=== PATIENT | female | born 1965 | race Caucasian/White ===

== ENCOUNTER 2024-08-05 20:14 | Emergency (ER) | payer OTHER, SELFPAY ==
--- NOTE | ~2024-08-05 | XR_ITS ---
EXAMINATION: XR CHEST 2 VIEWS CLINICAL INFORMATION: Chest pain. COMPARISON: None. TECHNIQUE: Frontal and lateral views of the chest were obtained. FINDINGS: The heart, great vessels, pulmonary vasculature and mediastinum are normal. The lungs show no focal infiltrate, effusion or pneumothorax. There is no acute osseous abnormality. XR/XR chest 2V IMPRESSION: No active cardiopulmonary disease. Electronically signed by: Raymond Alvarez MD 08/05/2024 09:36 PM EST
[2024-08-05 20:19] VITALS: BP 186/88; PULSE 55; RESP 16; TEMP 36.7; O2SAT 99; BMI 32.6
--- NOTE | 2024-08-05 20:19 | ECG_ITS ---
Test Reason : CP Blood Pressure : / mmHG Vent. Rate : 059 BPM Atrial Rate : 059 BPM P-R Int : 174 ms QRS Dur : 102 ms QT Int : 412 ms P-R-T Axes : 028 -37 016 degrees QTc Int : 407 ms Sinus bradycardia Left axis deviation Minimal voltage criteria for LVH, may be normal variant ( Benny product ) Cannot rule out Anterior infarct , age undetermined Abnormal ECG No previous ECGs available Referred By: Mini Bass Electronically Signed By:CATHY FUNEZ MD
--- NOTE | 2024-08-05 20:20 | ED.CHESTPAIN ---
HPI - Chest Pain General Chief Complaint: Chest Pain Stated Complaint: Chest pain Time Seen by Provider: 08/05/24 23:32 Source: patient Mode of arrival: ambulatory History of Present Illness ED Provider: June White PA-C HPI narrative: 59-year-old female seen in the ED for concerns regarding chest pain and associated changes in heart rate. Patient reports that baseline heart rate is low but has recently been getting alerts on their apple watch that their heart rate is in the mid 30s. For approximately 2 weeks patient has been experiencing spikes in heart rate into the 140s and yesterday 160s; notes associated nausea, sweating, and fluttering sensation in chest. Currently reporting 3/10 centralized chest pain that is described as pressure; has been present for approximately 1 day. Has not noticed anything that makes it better or worse. Denies any new medications, any recent illness, any recent travel. Denies notable trigger for events. Denies radiation of pain to arm, jaw, back. Does not currently have any diagnosed cardiac or pulmonary concerns and is not currently have a backup administrative coordinator. Onset (ago): day(s) (1) Timing of current episode: constant (Constant, although patient reports symptoms have gotten better since being in the emergency department) Onset: during rest (Has reportedly had been in different environments; including while driving and at home.) Pain location: substernal (Reports that it is centralized and radiates to the left side of the chest) and left chest Pain scale (0-10): 3 Quality: other (Pressure) Relieving factors: nothing Exacerbating factors: nothing Associated symptoms: nausea and diaphoresis Treatment prior to arrival: none Related Data Allergies Allergy/AdvReac Type Severity Reaction Status Date / Time Iodinated Contrast Media Allergy Severe Difficulty Verified 08/05/24 20:23 [IV Contrast Dye] Breathing erythromycin base Allergy Intermediate Vomiting Verified 08/05/24 20:23 Review of Systems Review of Systems: Neuro: Alert and oriented. Denies numbness and tingling of extremities. Constitutional: Denies fever, chills, weakness. HEENT: Denies head pain, headache. Denies visual disturbances, erythema, discharge of the eyes. Denies auditory changes, discharge with the ears. Denies nasal discharge, nasal congestion. Denies difficulty swallowing, sore throat. Cardiac: Reports 3/10 centralized chest pressure. Reports fluttering sensation in chest associated with high heart rate. Pulmonary: Denies shortness of breath, cough, wheezing, sputum production Abdominal: Reports nausea during event. Denies vomiting, abdominal pain, diarrhea, constipation MSK: Reports full range of motion in all extremities. Integumentary: Denies skin changes including rashes, erythema, pruritus Yes all other systems are reviewed and are negative Constitutional: Constitutional: Reports as per HPI and Reports no additional constitutional complaints Eyes: Eyes: Reports as per HPI and Reports no additional eye complaints ENT: Reports system reviewed and no additional complaints, except as documented and Reports as per HPI Cardiovascular: Cardiovascular: Reports as per HPI Respiratory: Respiratory: Reports as per HPI and Reports no additional respiratory complaints Gastrointestinal: Gastrointestinal: Reports as per HPI and Reports no additional gastrointestinal complaints Comments: Nausea associated with an increase in heart rate Musculoskeletal: Musculoskeletal: Reports no additional musculoskeletal complaints and Reports as per HPI Integumentary/Breasts: Skin/Breast: Reports system reviewed and no additional complaints, except as docu and Reports as per HPI Neurologic: Reports system reviewed and no additional complaints, except as documented and Reports as per HPI Psychiatric: Comments: No known history of anxiety or depression; no notable triggers prior to events Endocrine: Endocrine: Reports no additional endocrine complaints and Reports as per HPI Hematologic/Lymphatic: Hematologic/Lymphatic: Reports no additional hematologic/lymphatic complaints and Reports as per HPI Allergic/Immunologic: Allergic/Immunologic: Reports no additional allergic/immunologic complaints and Reports as per HPI [facility] Social History Social History (System 07/20/23 @ 15:26 by Vianney Haque) Smoked in Last 30 Days: No Use of substances other than those prescribed or required for medical reasons: No Advance Directives: No Physical Exam Vital Signs: Vital Signs: Last Vital Signs Temp 98.0 F 08/05/24 23:52 Pulse 56 08/05/24 23:52 Resp 12 08/05/24 23:52 BP 156/74 H 08/05/24 23:52 Pulse Ox 98 08/05/24 23:52 O2 Del Method Room Air 08/05/24 23:52 BMI result Body Mass Index 32.6 Const: Other: Patient is calm and cooperative, well-appearing. Seen lying in bed speaking in complete sentences. General: cooperative, healthy appearing, comfortable, no acute distress, alert and awake Nutritional Appearance: average body habitus and well nourished Orientation/consciousness: patient oriented x3 HEENT: Other: Head is normocephalic, atraumatic. No notable changes to hearing. No abnormalities to external ears. Nose is normal appearing no signs of trauma or abnormalities Face is symmetric with no signs of trauma or abnormalities Head: Yes normal to inspection, Yes normocephalic and Yes atraumatic Ears: hearing grossly normal bilaterally and external ears normal General nose exam: Normal external nose present and Normal nares present Face and sinus: Yes normal facial exam and Yes face symmetric Eyes: Other: Pupils are PERRL. EOM intact. General: appearance normal, both eyes and all related structures Eyelids: Yes eyelids normal Conjunctivae: conjunctivae normal Sclerae: sclerae normal Pupils: Equal, round and reactive pupils present EOM: EOMs intact bilaterally Neck: Neck: Yes normal visual inspection and Yes full ROM Resp: Other: No signs of respiratory distress. Lung sounds clear to auscultation bilaterally; no notable wheezing, rhonchi. Patient is able to speak in complete in full sentences Effort & Inspection: normal respiratory effort Auscultation: clear to auscultation bilaterally Cardio: Rate: regular rate Rhythm: regular rhythm GI: Other: abdomen is soft, non-tender, non-distended Inspection: Yes normal to inspection Skin: Other: Skin is warm, dry, appropriate her color. No notable rashes, erythema, edema General skin exam: no rashes or lesions noted Neuro: General: patient oriented x3 and moves all extremities Cranial nerves: Yes Equal, round and reactive pupils present Extrem: Other: Patient is able to move all extremities freely; no noted edema. General: Yes normal to inspection and Yes full ROM Psych: Other: Patient is alert and oriented; does not appear to be in a state of distress Course Course Course Narrative: This is a Rapid Medical Examination (RME) performed by Luis Alberto Bass PA-C in triage. Full HPI, ROS, assessment and treatment plan per primary provider in the Main ED. 59 yo female with no significant medical history presents to the ER for evaluation of 4/10 squeezing chest pain in the middle of her chest that radiates to the left side of the chest and to her back. Pain started yesterday after she had a 10 minute episode of tachycardia to the 160s. HR was picked up on her watch and phone. also had a similar episode 2 weeks ago but was shorter in duration. Recently had a Holter monitor for bradycardia, does not know the results yet. has not seen a backup administrative coordinator yet. HR 50s in triage which she reports is her baseline. BP 186/88 in triage. no history of HTN. no headache or vision changes. Plan: EKG, labs, CXR Medical Decision Making Medical Decision Making MDM Narrative: Abelardo White PA-C have personally assessed and manage the patient,Chinyere KIM observed in helped to formulate the documentation. 59-year-old female seen in the ED for concerns regarding chest pain and associated changes in heart rate. Patient reports that baseline heart rate is low but has recently been getting alerts on their apple watch that their heart rate is in the mid 30s. For approximately 2 weeks patient has been experiencing spikes in heart rate into the 140s and yesterday 160s; notes associated nausea, sweating, and fluttering sensation in chest. Currently reporting 3/10 centralized chest pain that is described as pressure; has been present for approximately 1 day. Has not noticed anything that makes it better or worse. Denies any new medications, any recent illness, any recent travel. Denies notable trigger for events. Denies radiation of pain to arm, jaw, back. Does not currently have any diagnosed cardiac or pulmonary concerns and is not currently have a backup administrative coordinator. DDX - anxiety; consider given increase in heart rate, nausea, and chest pain. May be difficult to diagnose due to no apparent trigger prior to events - stable angina; consider given chest pain, nausea, changes in heart rate. Unlikely as patient denies chest pain being triggered upon exertion - arrhythmia; consider given fluctuation and heart rate with episodes of bradycardia and episodes of tachycardia with no apparent trigger. Unlikely as EKG showed no signs of arrhythmia - pulmonary embolism; consider given tachycardia and associated chest pain. Unlikely as symptoms of tachycardia have been ongoing for approximately 2 weeks - myocardial infarction; consider given chest pain, nausea, changes in heart rate. Unlikely as EKG did not show changes that was support diagnosis; we will need to assess troponin levels Plan: - EKG: Assess for any underlying arrhythmia, myocardial infarction, other cardiac, pulmonary, or electrolyte abnormalities - CBC: Assess for any underlying hematologic or infectious process - CMP: Assess for any metabolic or electrolyte abnormalities - UA: This is rounding signs of infectious pathology - troponin: Assess for elevation which may be indicative of underlying cardiac pathology - chest x-ray: Assess for any cardiac, pulmonary abnormalities - COVID/Flu/RSV swab: To assess for the presence of COVID, flu, RSV per June White PA-C Patient has been having ongoing palpitations that are transient over the past 2 weeks. She had a Holter monitor trial, she is currently pending results. Patient was wearing an Apple watch, when she noted her heart rate to be elevated. I do not think this is ACS, given duration of symptoms, beyond age, the patient has no risk factors for coronary artery disease, screening labs including a cardiac enzymes were obtained. Thought about PE, however there was not a pleuritic nature to her pain, the tachycardia is transient, she is not hypoxic, she also has no objective signs symptoms for DVT on exam, I am not adding a dimer. Thought about thyroid toxicosis, a TSH were screened, it is within the normal limit. I have independently reviewed the following tests: Labs: No leukocytosis, not anemic, no electrolyte abnormality, thyroid within normal limit, troponin negative EKG: Sinus bradycardia, rate of 59, no ischemic changes no ectopy, QTC 407 Chest x-ray: XR/XR chest 2V IMPRESSION: No active cardiopulmonary disease. Electronically signed by: Raymond Alvarez MD 08/05/2024 09:36 PM [facility] [place] Lab Data 08/05/24 20:42 08/05/24 20:42 Labs: Lab Results 08/05/24 08/05/24 08/05/24 Range/Units 20:41 20:42 23:56 WBC 8.5 (4.8-10.8) X10*3/uL RBC 4.40 (4.20-5.50) X10*6/uL Hgb 13.6 (12.0-16.0) g/dl Hct 39.2 (37.0-47.0) % MCV 89.1 (80.0-98.0) fL MCH 30.9 (27.0-33.0) pg MCHC 34.7 (31.0-35.0) g/dl RDW 12.5 (11.0-16.0) % Plt Count 304 (160-400) X10*3/uL MPV 9.7 (9.4-12.3) fL Immature Gran % (Auto) 0.1 (0.0-0.4) % Neut % (Auto) 46.2 (45-73) % Lymph % (Auto) 43.5 H (20-40) % Mcintosh % (Auto) 8.2 (2-11) % Eos % (Auto) 1.4 (0-4) % Baso % (Auto) 0.6 (0-2) % Lymph # (Auto) 3.7 (1.2-4.9) X10*3/uL [place]osh # (Auto) 0.7 (0.1-1.2) X10*3/uL Eos # (Auto) 0.1 (0.0-0.4) X10*3/uL Baso # (Auto) 0.1 (0.0-0.2) X10*3/uL Abs Immat Gran (auto) 0.01 (0.00-0.03) X10*3/uL Absolute Neuts (auto) 3.9 (2.0-8.3) x10*3/uL Absolute Nucleated RBC 0.000 (0.0-0.012) X10*3/uL Nucleated RBC % (auto) 0.0 (0.0-0.2) /100WBC PT 10.7 L (10.9-12.4) SEC INR 0.9 (0.9-1.1) APTT 32.4 (26.0-36.8) SEC Sodium 140 (135-145) mmol/L Potassium 4.0 (3.3-5.1) mmol/L Chloride 108 (96-108) mmol/L Carbon Dioxide 23 (22-29) mmol/L Anion Gap 13 (12-20) BUN 17 H (9-16) mg/dL Creatinine 0.82 (0.5-1.4) mg/dL Estim Creat Clear Calc 78.5 Estimated GFR > 60 Random Glucose 103 (60-115) mg/dL Calcium 9.9 (8.4-10.2) mg/dL Magnesium 2.1 (1.6-2.6) mg/dL Total Bilirubin 0.4 (0.0-1.0) mg/dL Direct Bilirubin 0.1 (0.0-0.5) mg/dL AST 47 H (5-31) U/L ALT 75 H (0-31) U/L Alkaline Phosphatase 109 (39-117) U/L Troponin I High Sens < 2.7 (<3.5-17.0) ng/L Total Protein 7.4 (6.5-8.0) g/dL Albumin 4.5 (3.5-5.0) g/dL TSH 2.40 (0.32-4.0) uIU/mL Urine Color Yellow Urine Appearance Clear Urine pH 6.5 (5.0-9.0) Ur Specific [place] <= 1.005 (1.005-1.025) Urine Protein Negative (Neg-Trace) mg/dL Urine Glucose (UA) Negative (Negative) mg/dL Urine Ketones Negative (Negative) mg/dL Urine Blood Negative (Negative) Urine Nitrite Negative (Negative) Ur Leukocyte Esterase Moderate (2+) H (Negative) Urine RBC 0-2 (0-2) /HPF Urine WBC 11-20 H (0-5) /HPF Ur Squamous Epith Cells 3-5 (0-2) /HPF Urine Bacteria None Seen (None Seen) Hyaline Casts 0-2 (0-2) /LPF Influenza Type A (PCR) NEGATIVE (Negative) Influenza Type B (PCR) NEGATIVE (Negative) RSV RNA Qual (PCR) NEGATIVE (Negative) SARS-CoV-2 RNA (RT-PCR) NEGATIVE (Negative) Discharge Plan Discharge Clinical Impression: Palpitations, Chest pain Patient Disposition: Home, Self-Care Instructions: Heart Palpitations (ED), Valsalva Maneuver (ED), Noncardiac Chest Pain (ED) Additional Instructions: All of your screening labs including a cardiac enzyme and your thyroid function were screened and were normal. There were no concerning changes on your EKG. See home care instructions. I have given you instructions on how to perform the Valsalva maneuver in the event the you develop a rapid rate again. Keep your pending follow up with your primary care provider for the Holter monitor trial results. Return precautions for a prolonged period of rapid heart rate, the development of lightheaded , or the sense your going to pass out. Print Language: Ukrainian
[2024-08-05 20:47] LABS: MANUAL DIFF FLAG NO
[2024-08-05 20:50] LABS: Basophils Absolute Auto 0.1 X10*3/uL (0.0-0.2); Basophils Percent Auto 0.6 % (0-2); Eosinophils Absolute Auto 0.1 X10*3/uL (0.0-0.4); Eosinophils Percent Auto 1.4 % (0-4); Hematocrit 39.2 % (37.0-47.0); Hemoglobin 13.6 g/dl (12.0-16.0); Imm Gran Abs Auto 0.01 X10*3/uL (0.00-0.03); Imm Gran Pct Auto 0.1 % (0.0-0.4); Lymphocytes Absolute Auto 3.7 X10*3/uL (1.2-4.9); Lymphocytes Percent Auto 43.5 % (20-40); Mean Corpuscular HGB Conc 34.7 g/dl (31.0-35.0); Mean Corpuscular Hemoglobin 30.9 pg (27.0-33.0); Mean Corpuscular Volume 89.1 fL (80.0-98.0); Mean Platelet Volume 9.7 fL (9.4-12.3); Monocytes Absolute Auto 0.7 X10*3/uL (0.1-1.2); Monocytes Percent Auto 8.2 % (2-11); Neutrophils Absolute Auto 3.9 x10*3/uL (2.0-8.3); Neutrophils Percent Auto 46.2 % (45-73); Platelet Count 304 X10*3/uL (160-400); Red Cell Distribution Width 12.5 % (11.0-16.0); White Blood Count 8.5 X10*3/uL (4.8-10.8)
[2024-08-05 20:55] LABS: INTERNATIONAL NORM RATIO 0.9 (0.9-1.1); Prothrombin Time 10.7 SEC (10.9-12.4)
[2024-08-05 20:58] LABS: Partial Thromboplastin Time 32.4 SEC (26.0-36.8)
[2024-08-05 21:07] LABS: Alanine Aminotransferase 75 U/L (0-31); Albumin Level 4.5 g/dL (3.5-5.0); Alkaline Phosphatase 109 U/L (39-117); Anion Gap 13 (12-20); Aspartate Amino Transferase 47 U/L (5-31); Bilirubin Direct 0.1 mg/dL (0.0-0.5); Bilirubin Total 0.4 mg/dL (0.0-1.0); Blood Urea Nitrogen 17 mg/dL (9-16); Calcium 9.9 mg/dL (8.4-10.2); Carbon Dioxide 23 mmol/L (22-29); Chloride 108 mmol/L (96-108); Creatinine Clr Calc Pharmacy 78.5; Estimated Glomerular Filt Rate > 60; Glucose Random 103 mg/dL (60-115); Magnesium 2.1 mg/dL (1.6-2.6); Sodium 140 mmol/L (135-145); Total Protein 7.4 g/dL (6.5-8.0)
[2024-08-05 21:14] LABS: Troponin-I High Sensitivity < 2.7 ng/L (<3.5-17.0)
[2024-08-05 21:25] LABS: Influenza A PCR NEGATIVE (Negative); Influenza B PCR NEGATIVE (Negative); Resp Syncy Virus RNA Qual PCR NEGATIVE (Negative); SARS COV2 PCR INHOUSE NEGATIVE (Negative)
[2024-08-05 23:00] VITALS: BP 177/57; PULSE 60; RESP 18; TEMP 36.5; O2SAT 97
[2024-08-05 23:52] VITALS: BP 156/74; PULSE 56; RESP 12; TEMP 36.7; O2SAT 98
[2024-08-06 00:12] LABS: Appearance Urine Clear; Color Urine Yellow; Glucose Urine UA Negative (Negative); Leukocyte Esterase Urine Moderate (2+) (Negative); Nitrite Urine Negative (Negative); PH 6.5 (5.0-9.0); Specific Gravity - Urine <= 1.005 (1.005-1.025); UMIC TRIGGER UACC YES; Urine Blood Negative (Negative); Urine Ketones Negative (Negative); Urine Protein Negative (Neg-Trace)
[2024-08-06 00:16] LABS: Bacteria Urine None Seen (None Seen); Hyaline Casts Urine 0-2 /LPF (0-2); RBC Urine 0-2 /HPF (0-2); UACC Culture Trigger YES
[2024-08-06 01:04] VITALS: BP 156/74; PULSE 56; RESP 12; TEMP 36.7; O2SAT 98
== END 2024-08-06 01:04 | disposition home or self-care (01) ==
PROVIDERS: Physician Assistant; Emergency Provider Emergency Medicine Emergency Medical Services; PCP Nurse Practitioner Family
DX: R00.2 Palpitations (principal); R07.9 Chest pain, unspecified; R00.1 Bradycardia, unspecified; Z03.818 Encounter for observation for suspected exposure to other biological agents ruled out
CPT/HCPCS: 0241U; 36415; 71046; 80048; 80076; 81001; 81003; 83735; 84443; 84484; 85025; 85610; 85730; 87086; 93005; 99284; 99285

== ENCOUNTER → 2024-08-05 20:19 | Outpatient (BNV) | payer OTHER, SELFPAY | PROVIDERS: Emergency Provider Emergency Medicine Emergency Medical Services; PCP Nurse Practitioner Family; Visit Provider Internal Medicine Cardiovascular Disease | DX: R94.31 Abnormal electrocardiogram [ECG] [EKG] (principal) | CPT/HCPCS: 93010 ==